=== PATIENT | female | born 1995 | race Caucasian/White ===

== ENCOUNTER 2017-09-11 18:25 | Emergency (ER) | payer OTHER ==
[~2017-09-11] VITALS: Ht 157.4 cm; Wt 81.6 kg
[~2017-09-11 18:25] MED LIST: BIRTH CONTROL1 EAC1 PO; CILOXAN 5 ML5 M1 OP; CLARITIN10 MG PO; LOMOTIL 0.025 M1 TA1 PO; MOTRIN400 MG PO; NKHM; ZITHROMAX Z PA250 MG PO; Zofran4 MG PO
[2017-09-11] MEDS ORDERED: CEFADROXIL500 M1 PO (18:50)
[2017-09-11] MEDS ORDERED: DIFLUCAN150 MG PO (18:50)
== END 2017-09-11 18:59 | disposition home or self-care (01) ==
LOC: ED 18:25
DX: S90.851A Superficial foreign body, right foot, initial encounter (principal); F17.200 Nicotine dependence, unspecified, uncomplicated; X58.XXXA Exposure to other specified factors, initial encounter; Y93.89 Activity, other specified; Y92.9 Unspecified place or not applicable; Y99.9 Unspecified external cause status

== ENCOUNTER → 2018-02-27 | Outpatient (CLI) | payer BC, OTHER ==
[~2018-02-27] MED LIST changes: +CEFADROXIL500 M1 PO; +DIFLUCAN150 MG PO
== END | disposition home or self-care (01) ==
LOC: US 14:00
DX: Z34.91 Encounter for supervision of normal pregnancy, unspecified, first trimester (principal); Z3A.01 Less than 8 weeks gestation of pregnancy

== ENCOUNTER 2018-03-25 22:03 | Emergency (ER) | payer BC, OTHER ==
[~2018-03-25] VITALS: Ht 157.4 cm; Wt 91.6 kg
[2018-03-25 22:36] LABS: BASO % 0.2 % (0.0-1.0); EOS % 0.1 % (1.0-4.0); HEMATOCRIT 38.3 % (37.0-47.0); HEMOGLOBIN 13.6 g/dl (12.0-16.0); LYMPH # 2.4 10*3/uL (1.3-4.4); LYMPH % 13.8 % (27.0-41.0); MEAN CELL VOLUME 89.3 fl (81.0-99.0); MEAN CORPUSCULAR HGB 31.7 pg (27.0-31.0); MEAN CORPUSCULAR HGB CONC 35.5 g/dl (33.0-37.0); MEAN PLATELET VOLUME 9.6 fl (9.6-12.3); MONO # 0.8 10*3/uL (0.1-1.0); MONO % 4.7 % (3.0-9.0); NEUT % 80.9 % (47.0-73.0); PLATELET COUNT AUTOMATED 285 10*3/uL (130-400); RED BLOOD COUNT 4.29 10*6/uL (4.10-5.10); RED CELL DISTRI WIDTH 12.1 % (0-14.5); WHITE BLOOD COUNT 17.3 10*3/uL (4.8-10.8)
[2018-03-25 22:52] LABS: ALBUMIN 3.7 gm/dl (3.1-4.5); ALKALINE PHOSPHATASE 97 U/L (45-117); BUN 8 mg/dl (7-24); CHLORIDE 102 mmol/L (98-107); CREATININE 0.78 mg/dL (0.55-1.02); PHOSPHOROUS 1.8 mg/dL (2.5-4.9); POTASSIUM 3.4 mmol/L (3.5-5.1); SGOT/AST 17 IU/L (3-35); SGPT/ALT 38 U/L (12-78); SODIUM 137 mmol/L (136-145); TOTAL PROTEIN 7.7 gm/dL (6.4-8.2)
[2018-03-25 22:54] LABS: BILIRUBIN NEGATIVE (NEGATIVE); BLOOD NEGATIVE (NEGATIVE); CLARITY SL CLOUDY (CLEAR); COLOR YELLOW (YELLOW); GLUCOSE NEGATIVE (NEGATIVE); KETONE 3+ (NEGATIVE); LEUKO ESTERASE NEGATIVE (NEGATIVE); NITRITE NEGATIVE (NEGATIVE); PH 6.5 (5.0-9.0); SPECIFIC GRAVITY >= 1.030 (1.005-1.030); UROBILINOGEN 0.2 E.U./dl (0.2-1.0)
[2018-03-25 23:01] LABS: BACTERIA 1+; EPITHELIAL CELLS 25-30
[2018-03-25] MEDS ORDERED: MACROBID100 M1 PO (23:37)
[2018-03-25] MEDS ORDERED: DICLEGIS DR 101 EACH PO (23:59)
== END 2018-03-26 01:08 | disposition home or self-care (01) ==
LOC: ED 22:03
PROVIDERS: Student in an Organized Health Care Education/Training Program
DX: O21.9 Vomiting of pregnancy, unspecified (principal); R19.7 Diarrhea, unspecified; Z3A.09 9 weeks gestation of pregnancy

== ENCOUNTER 2019-07-17 07:40 | Emergency (ER) | payer BC, OTHER ==
[~2019-07-17] VITALS: Ht 157.4 cm; Wt 98.9 kg
[~2019-07-17 07:40] MED LIST changes: +DICLEGIS DR 101 EACH PO; +MACROBID100 M1 PO
[2019-07-17] MEDS ORDERED: Motrin,Rufen800 MG PO (09:45)
[2019-07-17] MEDS ORDERED: CYCLOBENZAPRINE5 M3 PO (09:45)
== END 2019-07-17 10:05 | disposition home or self-care (01) ==
LOC: ED 07:40
DX: S16.1XXA Strain of muscle, fascia and tendon at neck level, initial encounter (principal); R51 Headache; Z79.2 Long term (current) use of antibiotics; Z79.899 Other long term (current) drug therapy; W10.8XXA Fall (on) (from) other stairs and steps, initial encounter; Y93.89 Activity, other specified; Y92.89 Other specified places as the place of occurrence of the external cause; Y99.8 Other external cause status

== ENCOUNTER 2019-08-24 18:06 | Emergency (ER) | payer BC, OTHER ==
[~2019-08-24] VITALS: Ht 157.4 cm; Wt 94.3 kg
[~2019-08-24 18:06] MED LIST changes: +CYCLOBENZAPRINE5 M3 PO; +Motrin,Rufen800 MG PO
[2019-08-24 19:11] LABS: BILIRUBIN NEGATIVE (NEGATIVE); BLOOD NEGATIVE (NEGATIVE); CLARITY SL CLOUDY (CLEAR); COLOR YELLOW (YELLOW); GLUCOSE NEGATIVE (NEGATIVE); KETONE TRACE (NEGATIVE); LEUKO ESTERASE NEGATIVE (NEGATIVE); NITRITE NEGATIVE (NEGATIVE); PH 7.5 (5.0-9.0); UROBILINOGEN 0.2 E.U./dl (0.2-1.0)
[2019-08-24 19:18] LABS: BASO # 0.1 10*3/uL (0.0-0.1); BASO % 0.4 % (0.0-1.0); EOS % 0.3 % (1.0-4.0); HEMATOCRIT 40.9 % (37.0-47.0); HEMOGLOBIN 14.1 g/dl (12.0-16.0); LYMPH # 2.4 10*3/uL (1.3-4.4); LYMPH % 20.6 % (27.0-41.0); MEAN CELL VOLUME 90.1 fl (81.0-99.0); MEAN CORPUSCULAR HGB 31.1 pg (27.0-31.0); MEAN CORPUSCULAR HGB CONC 34.5 g/dl (33.0-37.0); MEAN PLATELET VOLUME 9.1 fl (9.6-12.3); MONO # 0.4 10*3/uL (0.1-1.0); MONO % 3.7 % (3.0-9.0); NEUT # 8.6 10*3/uL (2.3-7.9); NEUT % 74.7 % (47.0-73.0); PLATELET COUNT AUTOMATED 257 10*3/uL (130-400); RED BLOOD COUNT 4.54 10*6/uL (4.10-5.10); RED CELL DISTRI WIDTH 12.1 % (0-14.5); WHITE BLOOD COUNT 11.5 10*3/uL (4.8-10.8)
[2019-08-24 19:26] LABS: BACTERIA 2+
[2019-08-24 19:34] LABS: ALBUMIN 3.6 gm/dl (3.1-4.5); ALKALINE PHOSPHATASE 88 U/L (45-117); BUN 7 mg/dl (7-24); CHLORIDE 105 mmol/L (98-107); CREATININE 0.68 mg/dL (0.55-1.02); LIPASE 74 U/L (73-393); POTASSIUM 3.7 mmol/L (3.5-5.1); SGOT/AST 13 IU/L (3-35); SGPT/ALT 23 U/L (12-78); SODIUM 137 mmol/L (136-145); TOTAL PROTEIN 7.4 gm/dL (6.4-8.2)
[2019-08-24] MEDS ORDERED: ZOFRAN4 MG PO (20:40)
== END 2019-08-24 21:00 | disposition home or self-care (01) ==
LOC: ED 18:06
PROVIDERS: Nurse Practitioner Family
DX: K52.9 Noninfective gastroenteritis and colitis, unspecified (principal); R11.2 Nausea with vomiting, unspecified; F17.200 Nicotine dependence, unspecified, uncomplicated

== ENCOUNTER 2019-12-08 19:03 | Emergency (ER) | payer BC, OTHER ==
[~2019-12-08] VITALS: Ht 157.4 cm; Wt 96.6 kg
[~2019-12-08 19:03] MED LIST changes: +ZOFRAN4 MG PO
[2019-12-08 20:09] LABS: BASO % 0.5 % (0.0-1.0); EOS # 0.1 10*3/uL (0.0-0.4); EOS % 0.7 % (1.0-4.0); LYMPH # 3.6 10*3/uL (1.3-4.4); LYMPH % 41.5 % (27.0-41.0); MEAN CELL VOLUME 91.3 fl (81.0-99.0); MEAN CORPUSCULAR HGB 31.2 pg (27.0-31.0); MEAN CORPUSCULAR HGB CONC 34.1 g/dl (33.0-37.0); MEAN PLATELET VOLUME 9.2 fl (9.6-12.3); MONO # 0.6 10*3/uL (0.1-1.0); MONO % 7.5 % (3.0-9.0); NEUT # 4.2 10*3/uL (2.3-7.9); NEUT % 49.6 % (47.0-73.0); PLATELET COUNT AUTOMATED 282 10*3/uL (130-400); RED BLOOD COUNT 4.49 10*6/uL (4.10-5.10); WHITE BLOOD COUNT 8.6 10*3/uL (4.8-10.8)
[2019-12-08 20:27] LABS: ALBUMIN 3.6 gm/dl (3.1-4.5); ALKALINE PHOSPHATASE 84 U/L (45-117); BUN 13 mg/dl (7-24); CHLORIDE 109 mmol/L (98-107); CREATININE 0.89 mg/dL (0.55-1.02); LIPASE 123 U/L (73-393); POTASSIUM 3.6 mmol/L (3.5-5.1); SGOT/AST 15 IU/L (3-35); SGPT/ALT 27 U/L (12-78); SODIUM 141 mmol/L (136-145); TOTAL PROTEIN 7.5 gm/dL (6.4-8.2)
[2019-12-08 20:29] LABS: BETA-HCG, QUANT < 1.0 mIU/mL (1-3); TROPONIN I < 0.015 ng/ml (<0.045)
[2019-12-08 20:42] LABS: ACT PARTIAL THROMBO TIME 23.5 SECONDS (20.0-32.1); INTERNATIONAL NORM RATIO 0.9 (2.0-3.5)
[2019-12-08] MEDS ORDERED: PRILOSEC20 M1 PO (22:32)
== END 2019-12-08 22:45 | disposition home or self-care (01) ==
LOC: ED 19:03
PROVIDERS: Physician Assistant
DX: R07.89 Other chest pain (principal); F17.200 Nicotine dependence, unspecified, uncomplicated; Z79.2 Long term (current) use of antibiotics; Z79.899 Other long term (current) drug therapy

== ENCOUNTER 2020-10-07 22:07 | Emergency (ER) | payer OTHER ==
[~2020-10-07] VITALS: Ht 157.4 cm; Wt 104.3 kg
[~2020-10-07 22:07] MED LIST changes: +PRILOSEC20 M1 PO
[2020-10-07 22:49] LABS: BILIRUBIN Negative (Negative); BLOOD 3+ (Negative); CLARITY Turbid (Clear); COLOR Orange (Yellow); GLUCOSE Negative (Negative); KETONE Trace (Negative); LEUKO ESTERASE 1+ (Negative); NITRITE Negative (Negative); PH 5.5 (4.5-8.0)
[2020-10-07 22:59] LABS: BACTERIA 2+; RBC TNTC rbc/hpf (0-2)
[2020-10-07 23:23] LABS: BASO % 0.3 % (0.0-1.0); EOS % 0.3 % (1.0-4.0); HEMATOCRIT 41.6 % (37.0-47.0); LYMPH # 3.4 10*3/uL (1.3-4.4); LYMPH % 22.2 % (27.0-41.0); MEAN CELL VOLUME 88.5 fl (81.0-99.0); MEAN CORPUSCULAR HGB 30.2 pg (27.0-31.0); MEAN CORPUSCULAR HGB CONC 34.1 g/dl (33.0-37.0); MEAN PLATELET VOLUME 9.2 fl (9.6-12.3); MONO # 0.9 10*3/uL (0.1-1.0); NEUT # 10.8 10*3/uL (2.3-7.9); NEUT % 70.9 % (47.0-73.0); PLATELET COUNT AUTOMATED 323 10*3/uL (130-400); RED CELL DISTRI WIDTH 11.9 % (0-14.5); WHITE BLOOD COUNT 15.2 10*3/uL (4.8-10.8)
[2020-10-07 23:39] LABS: ALBUMIN 3.7 gm/dl (3.1-4.5); ALKALINE PHOSPHATASE 80 U/L (45-117); BUN 9 mg/dl (7-24); CHLORIDE 107 mmol/L (98-107); CREATININE 0.94 mg/dL (0.55-1.02); LIPASE 86 U/L (73-393); POTASSIUM 3.1 mmol/L (3.5-5.1); SGOT/AST 17 IU/L (3-35); SGPT/ALT 35 U/L (12-78); SODIUM 138 mmol/L (136-145); TOTAL PROTEIN 7.5 gm/dL (6.4-8.2)
== END 2020-10-08 02:23 | disposition short-term general hospital (02) ==
LOC: ED 22:07
PROVIDERS: Physician Assistant
DX: R65.20 Severe sepsis without septic shock (principal); N39.0 Urinary tract infection, site not specified; Z79.899 Other long term (current) drug therapy

== ENCOUNTER 2021-08-29 | Emergency (ER) | payer OTHER ==
[~2021-08-29] VITALS: Ht 157.4 cm; Wt 99.8 kg
[2021-08-29 00:50] LABS: BASO % 0.1 % (0.0-1.0); EOS # 0.1 10*3/uL (0.0-0.4); EOS % 0.7 % (1.0-4.0); HEMATOCRIT 40.9 % (37.0-47.0); LYMPH # 4.2 10*3/uL (1.3-4.4); LYMPH % 30.2 % (27.0-41.0); MEAN CELL VOLUME 89.5 fl (81.0-99.0); MEAN CORPUSCULAR HGB 30.9 pg (27.0-31.0); MEAN CORPUSCULAR HGB CONC 34.5 g/dl (33.0-37.0); MEAN PLATELET VOLUME 9.5 fl (9.6-12.3); MONO # 0.6 10*3/uL (0.1-1.0); MONO % 4.6 % (3.0-9.0); NEUT # 8.9 10*3/uL (2.3-7.9); NEUT % 64.2 % (47.0-73.0); PLATELET COUNT AUTOMATED 296 10*3/uL (130-400); RED BLOOD COUNT 4.57 10*6/uL (4.10-5.10); RED CELL DISTRI WIDTH 11.9 % (0-14.5); WHITE BLOOD COUNT 13.8 10*3/uL (4.8-10.8)
[2021-08-29 01:09] LABS: BUN 12 mg/dl (7-24); CHLORIDE 106 mmol/L (98-107); CREATININE 0.85 mg/dL (0.55-1.02); POTASSIUM 3.4 mmol/L (3.5-5.1); SODIUM 137 mmol/L (136-145)
[2021-08-29] MEDS ORDERED: AUGMENTIN 875875 MG PO (01:26)
== END 2021-08-29 01:52 | disposition home or self-care (01) ==
LOC: ED
PROVIDERS: Internal Medicine
DX: T81.49XA Infection following a procedure, other surgical site, initial encounter (principal); R59.0 Localized enlarged lymph nodes; Y92.89 Other specified places as the place of occurrence of the external cause

== ENCOUNTER → 2021-09-08 | Outpatient (CLI) | payer OTHER ==
[~2021-09-08] MED LIST changes: +AUGMENTIN 875875 MG PO
== END | disposition home or self-care (01) ==
LOC: US 09-07 09:00
PROVIDERS: ATTEND Nurse Practitioner
DX: R10.2 Pelvic and perineal pain (principal)

== ENCOUNTER → 2022-12-03 | Outpatient (CLI) | payer BC, OTHER | END | disposition home or self-care (01) | LOC: US 01:26 | PROVIDERS: ATTEND Nurse Practitioner Women's Health | DX: R10.9 Unspecified abdominal pain (principal); Z87.42 Personal history of other diseases of the female genital tract ==

== ENCOUNTER → 2023-03-22 | Outpatient (CLI) | payer BC, OTHER ==
[~2023-03-22] MED LIST changes: +JOLESSA PO
[2023-03-22 17:50] LABS: BASO % 0.4 % (0.0-1.0); EOS # 0.1 10*3/uL (0.0-0.4); EOS % 2.5 % (1.0-4.0); HEMATOCRIT 46.3 % (37.0-47.0); LYMPH # 1.1 10*3/uL (1.3-4.4); LYMPH % 22.4 % (27.0-41.0); MEAN CELL VOLUME 88.5 fl (81.0-99.0); MEAN CORPUSCULAR HGB 30.8 pg (27.0-31.0); MEAN CORPUSCULAR HGB CONC 34.8 g/dl (33.0-37.0); MEAN PLATELET VOLUME 9.2 fl (9.6-12.3); MONO # 0.5 10*3/uL (0.1-1.0); NEUT # 3.3 10*3/uL (2.3-7.9); NEUT % 65.5 % (47.0-73.0); PLATELET COUNT AUTOMATED 258 10*3/uL (130-400); RED BLOOD COUNT 5.23 10*6/uL (4.10-5.10); RED CELL DISTRI WIDTH 12.2 % (0-14.5); WHITE BLOOD COUNT 5.1 10*3/uL (4.8-10.8)
[2023-03-22 18:05] LABS: ALKALINE PHOSPHATASE 85 U/L (46-116); BUN 8 mg/dl (9-23); CHLORIDE 106 mmol/L (98-107); POTASSIUM 3.4 mmol/L (3.4-5.1); SGPT/ALT 37 U/L (10-49); TOTAL PROTEIN 7.2 gm/dL (6.0-8.0)
[2023-03-23 16:07] LABS: t-TRANSGLUTAMINASE (tTG) IGA 2 U/mL (0-3)
== END | disposition home or self-care (01) ==
LOC: LAB 17:26
PROVIDERS: ATTEND Internal Medicine
DX: R19.7 Diarrhea, unspecified (principal)

== ENCOUNTER 2023-03-23 16:16 | Emergency (ER) | payer BC, OTHER ==
[~2023-03-23] VITALS: Ht 157.4 cm; Wt 96.2 kg
[~2023-03-23 16:16] MED LIST changes: -JOLESSA PO
[2023-03-23] MEDS ORDERED: JOLESSA PO (16:57)
[2023-03-23 17:55] LABS: BASO % 0.5 % (0.0-1.0); EOS # 0.1 10*3/uL (0.0-0.4); EOS % 2.5 % (1.0-4.0); HEMATOCRIT 46.9 % (37.0-47.0); LYMPH # 1.9 10*3/uL (1.3-4.4); LYMPH % 34.3 % (27.0-41.0); MEAN CELL VOLUME 88.2 fl (81.0-99.0); MEAN CORPUSCULAR HGB 30.5 pg (27.0-31.0); MEAN CORPUSCULAR HGB CONC 34.5 g/dl (33.0-37.0); MEAN PLATELET VOLUME 9.4 fl (9.6-12.3); MONO # 0.6 10*3/uL (0.1-1.0); MONO % 10.2 % (3.0-9.0); NEUT # 2.9 10*3/uL (2.3-7.9); NEUT % 52.3 % (47.0-73.0); PLATELET COUNT AUTOMATED 256 10*3/uL (130-400); RED BLOOD COUNT 5.32 10*6/uL (4.10-5.10); RED CELL DISTRI WIDTH 12.1 % (0-14.5); WHITE BLOOD COUNT 5.5 10*3/uL (4.8-10.8)
[2023-03-23 18:04] LABS: BILIRUBIN Negative (Negative); BLOOD 2+ (Negative); CLARITY Cloudy (Clear); COLOR Yellow (Yellow); GLUCOSE Negative (Negative); KETONE 2+ (Negative); LEUKO ESTERASE Trace (Negative); NITRITE Negative (Negative); PH 5.5 (4.5-8.0); SPECIFIC GRAVITY >= 1.030 (1.001-1.030)
[2023-03-23 18:07] LABS: ACT PARTIAL THROMBO TIME 27.1 SECONDS (20.0-32.1)
[2023-03-23 18:10] LABS: ALKALINE PHOSPHATASE 85 U/L (46-116); BUN 8 mg/dl (9-23); CHLORIDE 106 mmol/L (98-107); LIPASE 45 U/L (12-53); POTASSIUM 3.4 mmol/L (3.4-5.1); SGPT/ALT 50 U/L (10-49); TOTAL PROTEIN 7.2 gm/dL (6.0-8.0)
[2023-03-23 18:25] LABS: EPITHELIAL CELLS 21-30
== END 2023-03-23 21:14 | disposition home or self-care (01) ==
LOC: ED 16:16
PROVIDERS: Physician Assistant
DX: K52.9 Noninfective gastroenteritis and colitis, unspecified (principal); Z98.890 Other specified postprocedural states

== ENCOUNTER 2023-12-14 18:19 | Emergency (ER) | payer OTHER ==
[~2023-12-14] VITALS: Ht 167.6 cm; Wt 84.8 kg
[~2023-12-14 18:19] MED LIST changes: +JOLESSA PO
[2023-12-14 20:54] LABS: BASO % 0.3 % (0.0-1.0); EOS # 0.2 10*3/uL (0.0-0.4); EOS % 1.4 % (1.0-4.0); LYMPH # 4.4 10*3/uL (1.3-4.4); LYMPH % 41.2 % (27.0-41.0); MEAN CELL VOLUME 92.4 fl (81.0-99.0); MEAN CORPUSCULAR HGB 31.1 pg (27.0-31.0); MEAN CORPUSCULAR HGB CONC 33.6 g/dl (33.0-37.0); MEAN PLATELET VOLUME 9.2 fl (9.6-12.3); MONO # 0.9 10*3/uL (0.1-1.0); MONO % 8.7 % (3.0-9.0); NEUT # 5.2 10*3/uL (2.3-7.9); NEUT % 48.1 % (47.0-73.0); PLATELET COUNT AUTOMATED 310 10*3/uL (130-400); RED BLOOD COUNT 4.76 10*6/uL (4.10-5.10); RED CELL DISTRI WIDTH 12.2 % (0-14.5); WHITE BLOOD COUNT 10.7 10*3/uL (4.8-10.8)
[2023-12-14 21:08] LABS: ACT PARTIAL THROMBO TIME 24.1 SECONDS (20.0-32.1)
[2023-12-14 21:16] LABS: ALKALINE PHOSPHATASE 66 U/L (46-116); BUN 8 mg/dl (9-23); CHLORIDE 107 mmol/L (98-107); LIPASE 37 U/L (12-53); SGPT/ALT 22 U/L (5-49); TOTAL PROTEIN 7.1 gm/dL (6.0-8.0)
== END 2023-12-14 22:15 | disposition home or self-care (01) ==
LOC: ED 18:19
PROVIDERS: Internal Medicine
DX: M79.89 Other specified soft tissue disorders (principal); Z79.899 Other long term (current) drug therapy

== ENCOUNTER → 2023-12-16 | Outpatient (CLI) | payer OTHER | END | disposition home or self-care (01) | LOC: US 10:30 | PROVIDERS: ATTEND Family Medicine | DX: M79.605 Pain in left leg (principal); R22.42 Localized swelling, mass and lump, left lower limb ==

== ENCOUNTER → 2023-12-19 | Outpatient (CLI) | payer OTHER ==
[2023-12-19 18:07] LABS: BASO % 0.2 % (0.0-1.0); EOS # 0.1 10*3/uL (0.0-0.4); EOS % 0.7 % (1.0-4.0); LYMPH # 3.9 10*3/uL (1.3-4.4); LYMPH % 37.9 % (27.0-41.0); MEAN CELL VOLUME 91.7 fl (81.0-99.0); MEAN CORPUSCULAR HGB CONC 33.8 g/dl (33.0-37.0); MEAN PLATELET VOLUME 9.3 fl (9.6-12.3); MONO # 0.6 10*3/uL (0.1-1.0); NEUT # 5.6 10*3/uL (2.3-7.9); PLATELET COUNT AUTOMATED 311 10*3/uL (130-400); RED BLOOD COUNT 4.58 10*6/uL (4.10-5.10); WHITE BLOOD COUNT 10.2 10*3/uL (4.8-10.8)
[2023-12-19 18:17] LABS: ALKALINE PHOSPHATASE 73 U/L (46-116); BUN 13 mg/dl (9-23); CHLORIDE 104 mmol/L (98-107); SGPT/ALT 19 U/L (5-49); TOTAL PROTEIN 7.4 gm/dL (6.0-8.0)
[2023-12-21 19:06] LABS: TB1 Ag VALUE 0.02 IU/mL (.)
== END | disposition home or self-care (01) ==
LOC: LAB 17:22
PROVIDERS: Nurse Practitioner Family; ATTEND Pediatrics Pediatric Cardiology
DX: L73.2 Hidradenitis suppurativa (principal); L81.4 Other melanin hyperpigmentation; D22.5 Melanocytic nevi of trunk